=== PATIENT | male | born 1980 | race Two or more races ===

== ENCOUNTER 2025-05-31 07:35 | Emergency (ER) | payer OTHER, SELFPAY ==
[2025-05-31 07:36] VITALS: BMI 28.1
[2025-05-31 07:51] VITALS: BP 123/79; PULSE 89; RESP 18; TEMP 36.9; O2SAT 99
--- NOTE | 2025-05-31 07:56 | XR_ITS ---
Examination: Shoulder, right, 3 views Technique: Shoulder AP internal rotation, AP external rotation, Y view shoulder, 3 views Exam date and time : May 31, 2025, 0810 hours INDICATIONS: Lifting injury 1 month ago with persistent shoulder pain. FINDINGS: No shoulder fracture or dislocation Moderate narrowing glenohumeral joint No AC joint separation IMPRESSION: No shoulder fracture or dislocation
--- NOTE | 2025-05-31 07:58 | EDNOTE_ITS ---
ED Extremity Problem RME/HPI General Chief complaint: Extremity Problem,Nontraumatic Stated complaint: PAIN RIGHT SHOULDER/NECK x 1 MONTH, NOW SWOLLEN Time Seen by Provider: 05/31/25 07:39 Source: patient Arrival date/time: 05/31/25 07:35 45-year-old male with no known medical history presents to the emergency room with a chief complaint of tenderness and swelling to his right shoulder clavicle area x 1 month Mode of arrival: ambulatory Limitations: no limitations Related Data Previous Rx's ?Medication ?Instructions ?Recorded cyclobenzaprine 5 mg tablet 5 mg PO BID #14 tabs 05/02 cyclobenzaprine 5 mg tablet 5 mg PO BID #14 tabs 05/02 hydrocodone 5 mg-acetaminophen 325 1 tab PO Q8H PRN pa in #20 tabs 05/02/25 mg tablet hydrocodone 5 mg-acetaminophen 325 1 tab PO Q8H PRN pa in #20 tabs 05/02/25 mg tablet Allergies Allergy/AdvReac Type Severity Reaction Status Date / Time No Known Allergies Allergy Verified 05/31/25 07:38 Review of Systems Review of Systems Systems Reviewed: All systems reviewed, normal except as documented Constitutional Constitutional: Reports system reviewed and no additional complaints, except as documented, Denies fatigue, Denies fever(s), Denies headache(s) and Denies weakness Eyes Eyes: Reports system reviewed and no additional complaints, except as documented, Denies blurry vision and Denies change in vision ENT Ears, Nose, Mouth, and Throat: Reports system reviewed and no additional complaints, except as documented, Denies otalgia, Denies headache(s), Denies nasal congestion, Denies throat swelling and Denies vertigo Cardiovascular Cardiovascular: Reports system reviewed and no additional complaints, except as documented, Denies chest pain, Denies dyspnea and Denies dyspnea on exertion Respiratory Respiratory: Reports system reviewed and no additional complaints, except as documented, Denies chest congestion, Denies cough, Denies dyspnea, Denies dyspnea on exertion and Denies wheezing Gastrointestinal Gastrointestinal: Reports system reviewed and no additional complaints, except as documented, Denies abdominal pain, Denies cramping, Denies nausea and Denies vomiting Genitourinary Genitourinary: Reports system reviewed and no additional complaints, except as documented, Denies dysuria and Denies hematuria Musculoskeletal Musculoskeletal: Reports system reviewed and no additional complaints, except as documented, Reports arthralgias, Denies back pain, Reports joint swelling and Reports limited range of motion Integumentary/Breasts Skin/Breast: Reports system reviewed and no additional complaints, except as documented and Denies wounds Neurologic Neurologic: Reports system reviewed and no additional complaints, except as documented, Denies confusion, Denies headache(s), Denies lack of coordination, Denies vertigo and Denies weakness Psychiatric Psychiatric: Reports system reviewed and no additional complaints, except as do cumented, Denies anxiety, Denies confusion, Denies depression, Denies paranoia, Denies suicidal ideation and Denies tactile hallucinations Endocrine Endocrine: Reports system reviewed and no additional complaints, except as documented and Denies fatigue Hematologic/Lymphatic Hematologic/Lymphatic: Reports system reviewed and no additional complaints, except as documented and Denies lymphadenopathy Allergic/Immunologic Allergic/Immunologic: Reports system reviewed and no additional complaints, except as documented, Denies throat swelling, Denies urticaria and Denies wheezing ED Exam General Limitations: Present no limitations General appearance: Present alert and in no apparent distress Head Head exam: Present atraumatic Eye Eye exam: Present normal appearance, PERRL and EOMI ENT ENT exam: Present normal exam, normal oropharynx and mucous membranes moist Neck Neck exam: Present normal inspection, full ROM and trachea midline Chest Chest inspection: Present normal inspection and symmetric chest wall rise Respiratory Respiratory exam: Present normal lung sounds bilaterally Cardiovascular Cardiovascular exam: Present regular rate, normal rhythm and normal heart sounds Abdominal Exam Abdominal exam: Present soft and normal bowel sounds Extremities Exam Extremities exam: Present normal inspection and full ROM Expanded Upper Extremity Exam Shoulder exam: Present tenderness and tenderness over AC joint; Absent full ROM Arm exam: Present normal inspection Elbow exam: Present normal inspection Forearm/Wrist exam: Present normal inspection Hand exam: Present normal inspection Back Exam Back exam: Present normal inspection and full ROM Neurological Exam Neurological exam: Present alert, oriented X3 and CN II-XII intact Psychiatric Psychiatric exam: Present normal affect and normal mood Skin Skin exam: Present warm, dry, intact and normal color Course Quality Measures none Orders Category Date Time Status XR shoulder RT min 2V Stat Exams 05/31/25 07:56 Completed Ketorolac Inj [Toradol Inj] Med 05/31/25 07:58 Discontinued 30 mg IM X1 ONE Vital Signs Vital signs: Vital Signs Temperature 98.5 F 05/31/25 07:51 Pulse Rate 89 05/31/25 07:51 Respiratory Rate 18 05/31/25 07:51 Blood Pressure 123/79 05/31/25 07:51 Pulse Oximetry (%) 99 05/31/25 07:51 Oxygen Delivery Method Room Air 05/31/25 07:51 Extremity Problem MDM Narrative MDM Narrative:: 45-year-old male with no known medical history presents to the emergency room with a chief complaint of tenderness and swelling to his right shoulder clavicle area x 1 month Patient is hemodynamically stable and in no apparent distress Physical examination shows AC joint tenderness with palpation of the right shoulder. Patient states his pain radiates down the right clavicle. There is some mild swelling to the shoulder clavicle area. Patient has very limited range of motion and struggles to lift his hand above his head. Patient states a sling makes his pain worse. Patient was seen here 1 month ago for the same problem and has not gotten better. The patient has not followed up with his primary care provider X-ray of the right shoulder was completed today and it was negative for any acute findings Patient was discharged and educated to follow-up with his primary care provider as an MRI may be indicated to assess for any ligament damage or tears Patient was discharged and educated to follow-up with primary care provider in the next 24 to 48 hours and return to the emergency room for any evidence of worsening signs or symptoms Patient data External records reviewed:: [facility] previous records Clinical information provided by:: patient Social determinants that could affect healthcare access:: none Patient has the following chronic illnesses:: No chronic illness How is presenting disease/condition affected by chronic disease/condition?: no chronic disease Evaluation data The following diagnostics were reviewed and interpreted by me:: lab results and radiology exam(s) Lab and/or radiology exams considered but not ordered:: Labs and radiology exams considered and ordered Interpretation Summary: X-ray right shoulder-FINDINGS: No shoulder fracture or dislocation Moderate narrowing glenohumeral joint No AC joint separation IMPRESSION: No shoulder fracture or dislocation Medications / Prescriptions Medications or Prescriptions considered but not ordered:: Medication given Medication administrations:: Medication Administration History Discontinued Medications Ketorolac Tromethamine (Ketorolac Inj 60 Mg/2 Ml Vial) 30 mg IM X1 ONE Stop: 05/31/25 07:59 Last Admin: 05/31/25 08:08 Dose: 30 mg Documented By: K[facility] Medication given Consultations Consultation(s) initiated? (list below): No Diagnosis Extremity Problem Differential Diagnosis: other (Right shoulder sprain/right shoulder fraction/right shoulder dislocation) Most likely diagnosis given after review of the tests above:: Right shoulder sprain Admission Indicated Admission indicated?: not indicated Admission Request Was there a request for admission?: No Disposition Plan Disposition Plan: Discharge Discharge Attestation Discharge Attestation: The patient and all family members were given an opportunity to ask questions and understood the discharge instructions. Discharge instructions specifically effects, indications for sooner follow up or return to the emergency department, and the expected course of current diagnosis. Patient condition: Stable Discharge Plan Plan Patient Disposition: HOME (Self Care) Discharge Disposition comment: Stable Prescriptions/Referrals Prescriptions/Med Rec: No Action hydrocodone-acetaminophen 5-325 mg tablet 1 tab PO Q8H MDD 3 tab PRN (Reason: pain) Qty: 20 0RF cyclobenzaprine 5 mg tablet 5 mg PO BID Qty: 14 0RF cyclobenzaprine 5 mg tablet 5 mg PO BID Qty: 14 0RF hydrocodone-acetaminophen 5-325 mg tablet 1 tab PO Q8H MDD 3 tab PRN (Reason: pain) Qty: 20 0RF Referrals: No Primary/Family,Physician [Primary Care Provider] - In 1 week Problem List Clinical Impression: Sprain of shoulder, right Patient/Caregiver Discharge Instructions Education Materials: ED Shoulder Sprain Additional Instructions: Por favor, consulte con geronimo m?dico de cabecera en las pr?ximas 24 a 48 horas. Las radiograf?as de geronimo hombro dieron negativo para cualquier fractura o luxaci?n aguda. Por favor, consulte con geronimo m?dico de cabecera, ya que podr?a estar indicado derivarlo a demetra resonancia magn?valentin para evaluar cualquier da?o o desgarro de ligamentos en geronimo hombro. Si observa cualquier signo de empeoramiento de los signos o s?ntomas, regrese a urgencias de inmediato. Print Language: Greek Stand Alone Forms: Jessika Award Info., Work/School Release, Patient Portal Info Letter PA/[employer] Supervising Physician DONNELL/ROSIE Supervising Physician: Dr. Park
[2025-05-31] MEDS: KETOROLAC INJ 60 MG/2 ML VIAL 30 MG IM (08:08)
== END 2025-05-31 10:09 | disposition home or self-care (01) ==
PROVIDERS: Emergency Provider Nurse Practitioner Family
DX: S43.401A Unspecified sprain of right shoulder joint, initial encounter (principal); X50.0XXA Overexertion from strenuous movement or load, initial encounter
CPT/HCPCS: 73030; 96372; 99282; J1885